=== PATIENT | female | born 2000 | race African-American/Black ===

== ENCOUNTER 2021-05-29 14:43 | Emergency (ER) | payer OTHER, SELFPAY ==
[2021-05-29 14:53] VITALS: BP 121/74; PULSE 96; RESP 20; TEMP 37.4; O2SAT 97
--- NOTE | 2021-05-29 15:21 | ED.GENADULT ---
HPI - General Adult General Chief complaint: Upper Respiratory Infection Stated complaint: Sore throat/Fever Time Seen by Provider: 05/29/21 15:21 Source: patient and RN notes reviewed Mode of arrival: ambulatory Limitations: no limitations History of Present Illness HPI narrative: 21-year-old -Filip[place] female presents with complaints of chills and sore throat for the past 4 days. ?Montserrat reports increasing symptoms over the past 24 hours with intermittent headache (not the worst of her life), fever, and chills. ?Tylenol, last taken today at 09:50 AM with relief. ?Ill exposure recently. ?High fevers, as high as 103 Fahrenheit, orally without sweats. ?No drooling, neck or throat swelling. ?Pain is bilateral. ?Hurts to swallow. Exacerbation factors consist of eating and drinking. ?No rhinorrhea. ?Nasal congestion. ?No voice change. ?No nausea, vomiting, or abdominal pain. ?Tolerating liquids well. ?Denies dyspnea, difficulty swallowing, jaw pain, dental pain, facial pain, foreign body sensation, and rash. ?LMP May 23, 2021. ?Remains active. ?The patient reports she has not been diagnosed with COVID-19. ?The patient reports she is not waiting for the results of a COVID-19 lab test. ?The patient reports she does not have weakness or fatigue. ?The patient reports she does not have a new or worsening cough or shortness of breath. ?Denies chest pain. ?The patient reports she does not have any loss of taste or smell and diarrhea. Denies recent traveling. ?Denies concerns for COVID-19 or exposures. ?At this time, the patient is not suspected of having COVID-19. Some parts of this dictation were generated by voice recognition software and may contain typographical and/or grammatical inaccuracies. Related Data Allergies Allergy/AdvReac Type Severity Reaction Status Date / Time No Known Allergies Allergy Verified 05/29/21 14:58 Review of Systems Review of Systems: Narrative: CONSTITUTIONAL: Complains of fever, chills. Denies sweats. EYES: Denies visual changes, redness, discharge. ENT: Denies otalgia. Complains of sore throat, rhinorrhea, congestion. CARDIOVASCULAR: Denies chest pain, palpitations, edema. RESPIRATORY: Denies dyspnea, wheezing, cough. GASTROINTESTINAL: Denies abdominal pain, nausea, vomiting, diarrhea. GENITOURINARY: Denies dysuria, hematuria, abnormal discharge. SKIN: Denies rash or itching. MUSCULOSKELETAL: Denies acute back pain, joint pain, or myalgia. NEUROLOGIC: Denies numbness or focal weakness. Complaints of RAMOS. PSYCHIATRIC: Denies anxiety or depression. All systems reviewed & are unremarkable except as noted in HPI and below. [facility] Past Medical History Medical History (Updated 05/30/21 @ 00:00 by Marco Galvez) No significant past medical history Surgical History Surgical History (Updated 05/29/21 @ 18:34 by OSCAR Valencia) No significant past surgical history Family History Family History (Updated 05/29/21 @ 18:35 by OSCAR Valencia) Father Alive and well Mother COVID-19 06/2020 Social History Social History (Updated 05/29/21 @ 18:36 by OSCAR Valencia) Smoking status: Former smoker Tobacco type: cigarettes Second hand tobacco smoke exposure: Yes Alcohol intake: current Substance use: never Substance use type: does not use Living arrangements: with family Occupation/Education: unemployed Gender identity (if verbalized by the patient): Female Comments At time of signature, agree with the nurse past medical, surgical, social, and family history. There is no relevant family history pertinent to the presenting complaint. Exam Narrative: Exam Narrative: GENERAL: This is a well-nourished, well-developed patient, in no apparent distress. Speaks in full sentences without deficits and ambulates with steady gait without dyspnea. HEAD: Normocephalic, atraumatic. EYES: PERRL. Sclera clear/white. Vision is grossly intact. EARS: External ears no
[2021-05-30 17:20] LABS: SARS-CoV-2 RNA PCR Negative
== END 2021-05-29 16:00 | disposition home or self-care (01) ==
PROVIDERS: Emergency Provider Nurse Practitioner Family
DX: J02.9 Acute pharyngitis, unspecified (principal); Z20.822 Contact with and (suspected) exposure to COVID-19; Z87.891 Personal history of nicotine dependence
CPT/HCPCS: 87081; 87426; 87880; 99213; C9803; G0463; U0003; U0005

== ENCOUNTER 2021-08-16 12:33 | Emergency (ER) | payer OTHER, SELFPAY ==
[2021-08-16 12:42] VITALS: BP 118/100; PULSE 104; RESP 16; TEMP 37.3; O2SAT 100
--- NOTE | 2021-08-16 13:04 | ED.GENADULT ---
HPI - General Adult General Chief complaint: Upper Respiratory Infection Stated complaint: fever/berger Time Seen by Provider: 08/16/21 13:05 Source: patient Mode of arrival: ambulatory Limitations: no limitations History of Present Illness HPI narrative: 21-year-old female patient presents to the [facility] with complaints of a fever and headache that started 2 days ago. Patient states that she has some vaginal swelling that she was put on Bactrim for by her commercial roofing estimator 2 days ago. Patient states 2 days ago she started having fever as high as 1002. Patient states the fever broke today just to a 99 after taking Tylenol and ibuprofen. Patient states she has also had headache and some stiff neck pain. Denies any runny nose, sore throat, coughing, chest pain or shortness of breath. Patient states she is not vaccinated for Covid but denies being around anybody positive for Covid that she is aware of. Related Data Home Medications Medication Instructions Recorded Confirmed No Home Medications 08/16/21 08/16/21 Allergies Allergy/AdvReac Type Severity Reaction Status Date / Time No Known Allergies Allergy Verified 08/16/21 13:10 Review of Systems Review of Systems: CONSTITUTIONAL: Positive subjective fever, denies chills, or sweats. EYES: Denies visual changes, redness, or discharge. ENT: Denies rhinorrhea, congestion, sore throat, or otalgia. CARDIOVASCULAR: Denies chest pain, palpitations, or edema. RESPIRATORY: Denies cough or dyspnea. GASTROINTESTINAL: Denies abdominal pain, nausea, vomiting, or diarrhea. GENITOURINARY: Denies dysuria or hematuria. SKIN: Denies rash or itching. MUSCULOSKELETAL: Denies back pain, joint pain, or myalgia. NEUROLOGIC: Positive headache, denies numbness, or weakness. PSYCHIATRIC: Denies anxiety or depression. [facility] Past Medical History Medical History No significant past medical history Surgical History Surgical History No significant past surgical history Family History Family History Father Alive and well Mother COVID-19 06/2020 Social History Social History Smoking status: Former smoker Tobacco type: cigarettes Second hand tobacco smoke exposure: Yes Alcohol intake: current Substance use: never Substance use type: does not use Gender identity (if verbalized by the patient): Female Comments At the time of my signature I agree with nursing past medical history, surgical, social, and family history. There is no relevant family history pertinent to the presenting complaint. Exam Narrative: GENERAL: Well-appearing, well-nourished, and in no acute distress. HEAD: Normocephalic, atraumatic. EYES: PERRLA and EOMI. ENT: Nares with erythema and edema noted to the left nare, no rhinorrhea or epistaxis. Mucous membranes moist. Posterior pharynx with slight erythema but no swelling, exudates are not present. Bilateral TMs are clear with no erythema or foreign bodies to the canal. NECK: Supple. No lymphadenopathy CHEST: Clear to auscultation. No respiratory distress. HEART: Regular rate and rhythm. No murmur heard. Normal peripheral pulses. ABDOMEN: Soft, nontender, nondistended, normal active bowel sounds. EXTREMITIES: Normal range of motion. No edema. SKIN: Warm, dry, no rash. NEURO: No focal deficits. Alert and oriented x3. Course Reevaluation(s) Reevaluation #1: Reevaluated patient notified her that her rapid Covid test and her flu were both negative today. Discussed with her that this could also be due to the infection that her commercial roofing estimator is treating at this time. Encourage patient to continue the antibiotics that she was prescribed as well as Tylenol and ibuprofen for any headaches, fever, increase her fluids and plenty of rest at this vanessa
== END 2021-08-16 13:50 | disposition home or self-care (01) ==
PROVIDERS: Emergency Provider Nurse Practitioner Family
DX: B34.9 Viral infection, unspecified (principal); Z87.891 Personal history of nicotine dependence; Z20.822 Contact with and (suspected) exposure to COVID-19
CPT/HCPCS: 87426; 87804; 99213; C9803; G0463